=== PATIENT | female | born 1945 | race Caucasian/White ===

== ENCOUNTER 2018-01-26 21:30 | Emergency (ER) | payer MEDICARE ==
[~2018-01-26] VITALS: Ht 157.5 cm; Wt 65.3 kg
[~2018-01-26 21:30] MED LIST: ALBIPROI INH; ALBU90OI6 INH; ALEN10 PO; AZIT250 PO; BENZ100A PO; CODGUAEL PO; CYCL10 PO; Cyclobenzaprine5 MG PO; DOXY100 PO; GABA300 PO; GABA600 PO; HYDACE5 PO; HYDACE5325 PO; HYDACE7.5 PO; HYDGUAL120 PO; HYDPAM50 PO; HYDR1TAB94 PO; IBUP400 PO; IBUP600 PO; META800 PO; METPRE4DP PO; NAPR550 PO; Naprosyn500 MG PO; Norco 10-325 T1 EACH PO; Norco 5-325 Ta1 EACH PO; PRED20 PO; RXHYDACE PO; RXOXYACE PO; TRAM50 PO
[2018-01-26] MEDS ORDERED: GABA300 PO (22:34)
[2018-01-26] MEDS ORDERED: Cleocin HCl300 MG PO (23:21)
== END 2018-01-26 23:39 | disposition home or self-care (01) ==
LOC: ER 21:30
DX: L03.116 Cellulitis of left lower limb (principal); Z79.899 Other long term (current) drug therapy; Z87.891 Personal history of nicotine dependence
CPT/HCPCS: 99283

== ENCOUNTER 2019-09-19 14:36 | Emergency (ER) | payer MEDICARE ==
[~2019-09-19] VITALS: Ht 157.5 cm; Wt 68.0 kg
[~2019-09-19 14:36] MED LIST changes: +Cleocin HCl300 MG PO
[2019-09-19] MEDS ORDERED: HYDR1TAB94 PO (17:06)
[2019-09-19] MEDS ORDERED: Robaxin-750750 MG PO (17:06)
[2019-09-19] MEDS ORDERED: PRED10 PO (17:06)
== END 2019-09-19 17:23 | disposition home or self-care (01) ==
LOC: ER 14:36
DX: M54.12 Radiculopathy, cervical region (principal); Z87.891 Personal history of nicotine dependence
CPT/HCPCS: 72125; 96372; 99283-25; A9270-GY; J1885

== ENCOUNTER 2021-04-01 08:01 | Emergency (ER) | payer MEDICARE ==
[~2021-04-01] VITALS: Ht 157.5 cm; Wt 66.2 kg
[~2021-04-01 08:01] MED LIST changes: +PRED10 PO; +Robaxin-750750 MG PO
[2021-04-01] MEDS ORDERED: NEURONTIN300 MG PO (08:35)
[2021-04-01] MEDS ORDERED: Norco 5-325 Ta1 EACH PO ×3 (08:39→08:56)
== END 2021-04-01 08:58 | disposition home or self-care (01) ==
LOC: ER 08:01
DX: M79.602 Pain in left arm (principal); Z87.891 Personal history of nicotine dependence; Z79.899 Other long term (current) drug therapy
CPT/HCPCS: 73221; 99282; A9270

== ENCOUNTER 2024-06-26 12:47 | Emergency (ER) | payer MEDICARE ==
[~2024-06-26] VITALS: Ht 157.5 cm; Wt 63.0 kg
[~2024-06-26 12:47] MED LIST changes: +NEURONTIN300 MG PO
[2024-06-26 13:09] VITALS: BP 151/78
[2024-06-26] MEDS ORDERED: Ondansetron 8 MG SoluTab SL ONE (13:15)
[2024-06-26 13:40] LABS: Source, Urine Clean Catch
[2024-06-26 13:41] LABS: BASOPHILS ABSOLUTE AUTO 0.03 K/mm3 (0.00-0.23); BASOPHILS PERCENT AUTO 0 % (0-2); EOSINOPHILS ABSOLUTE AUTO 0.02 K/mm3 (0.00-0.68); EOSINOPHILS PERCENT AUTO 0 % (0-6); Hematocrit 46.6 % (33.0-51.0); Hemoglobin 15.4 g/dL (11.5-16.0); IMMATURE GRAN ABSOLUTE AUTO 0.02 K/mm3 (0.00-0.10); IMMATURE GRAN PERCENT AUTO 0 % (0-1); LYMPHOCYTES ABSOLUTE AUTO 1.58 K/mm3 (0.84-5.20); LYMPHOCYTES PERCENT AUTO 23 % (21-46); MONOCYTES ABSOLUTE AUTO 0.37 K/mm3 (0.16-1.47); MONOCYTES PERCENT AUTO 5 % (4-13); Mean Corpuscular HGB 30.7 pg (26.0-34.0); Mean Corpuscular Volume 93 fL (80-100); Mean Platelet Volume 10.6 fL (9.1-12.4); NEUTROPHILS ABSOLUTE AUTO 4.81 K/mm3 (1.96-9.15); NEUTROPHILS PERCENT AUTO 71 % (41-73); Platelet Count 252 K/mm3 (150-400); RDW Coefficient Variation 12.5 % (11.7-14.2); RDW Standard Deviation 42.9 fL (35.1-46.3); Red Blood Cell Count 5.02 M/mm3 (3.80-5.20); White Blood Cell Count 6.83 K/mm3 (4.00-11.30)
[2024-06-26 13:47] LABS: Bilirubin, Urine Neg (Neg); Blood, Urine Neg (Neg); Color, Urine Yellow (P-Yellow); Glucose Qualitative, Urine Neg (Neg); Ketones, Urine 2+ (Neg); Leukocyte Esterase, Urine Neg (Neg); Nitrite, Urine Neg (Neg); Protein, Urine 2+ (Neg); Urobilinogen, Urine NORM (Normal)
[2024-06-26 14:09] LABS: Albumin, Blood 3.6 g/dL (3.4-5.0); Albumin/Globulin Ratio 1.1 (0.8-1.8); Bilirubin, Total 0.6 mg/dL (0.1-1.0); Bun/Creatinine Ratio 19.6 (12.0-20.0); Calcium, Blood 8.7 mg/dL (8.5-10.1); Creatinine, Blood 0.61 mg/dL (0.40-1.00); Globulin, Blood 3.3 g/dL (2.2-4.0); Potassium, Blood 3.8 mmol/L (3.5-5.5); Total Protein, Blood 6.9 g/dL (6.4-8.2)
[2024-06-26 14:45] LABS: Appearance, Urine Hazy (Clear); Bacteria Many /hpf; Red Blood Cells, Urine 0-2 /hpf (0-2); Squamous Epithelial Cells Rare /hpf (Few); White Blood Cells, Urine 0-2 /hpf (0-5)
[2024-06-26 14:46] LABS: Amorphous Light (0-Heavy); Mucus Light (0-Heavy)
[2024-06-26] MEDS ORDERED: ONDA4ODT MM (15:47)
== END 2024-06-26 16:41 | disposition home or self-care (01) ==
LOC: ER 12:47
PROVIDERS: Emergency Medicine
DX: K52.9 Noninfective gastroenteritis and colitis, unspecified (principal); Z79.899 Other long term (current) drug therapy; Z87.891 Personal history of nicotine dependence
CPT/HCPCS: 80053; 81001; 85025; 87086; 93005; 93010; 99284-25; A9270